=== PATIENT | male | born 1950 | race Caucasian/White ===

== ENCOUNTER 2018-02-14 08:19 | Outpatient (CLI) | payer MEDICARE, OTHER | END 2018-02-14 08:20 | disposition home or self-care (01) | LOC: BICULT 08:19 | PROVIDERS: ATTEND Otolaryngology Plastic Surgery within the Head & Neck | DX: E04.1 Nontoxic single thyroid nodule (principal) | CPT/HCPCS: 76536 ==

== ENCOUNTER 2018-08-21 08:30 | Outpatient (CLI) | payer MEDICARE, OTHER ==
--- NOTE | 2018-08-21 09:34 | RAD ---
CHEST TWO VIEWS: History: Osteoarthritis both knees. Pre-operative evaluation for knee surgery. Comparison: 10-01-16 FINDINGS: Heart size is within normal limits. The lungs are clear of acute process. No confluent pneumonia, ove rt, edema, or pleural effusion. IMPRESSION: No acute intrathoracic disease. Stable from prior study. POS: TPC
[2018-08-21 09:42] LABS: ALT (SGPT) 26 U/L (8-55); AST (SGOT) 24 U/L (5-34); Albumin 4.2 g/dL (3.4-4.8); Alkaline Phosphatase 63 U/L (40-150); Anion Gap 14 mmol/L (10-20); BUN (Urea Nitrogen) 17 mg/dL (8.4-25.7); Bilirubin, Total 0.6 mg/dL (0.2-1.2); Calc. Creatinine Clearance 0 mL/min (70-130); Calcium 9.7 mg/dL (7.8-10.44); Carbon Dioxide 26 mmol/L (23-31); Chloride 103 mmol/L (98-107); Estimated GFR-MDRD 74; Globulin 2.9 g/dL (2.4-3.5); Glucose 192 mg/dL (80-115); Potassium 4.1 mmol/L (3.5-5.1); Protein, Total 7.1 g/dL (5.8-8.1); Sodium 139 mmol/L (136-145)
[2018-08-21 09:55] LABS: #Basophils 0.1 thou/uL (0.0-0.2); #Eosinphils 0.3 thou/uL (0.0-0.7); #Lymphocytes 1.4 thou/uL (1.20-3.40); #Monocytes 0.6 thou/uL (0.11-0.59); #Neutrophils 3.5 thou/uL (1.40-6.50); %Basophils 1.2 % (0.0-1.0); %Eosinophils 5.4 % (0.0-10.0); %Lymphocytes 23.2 % (21.0-51.0); %Monocytes 10.8 % (0.0-10.0); %Neutrophils 59.4 % (42.0-75.0); Hemoglobin 15.9 g/dL (14.0-18.0); Mean Corpuscular HGB CONC 35.6 g/dL (32.0-36.0); Mean Corpuscular Hemoglobin 34.3 pg (27.0-31.0); Mean Corpuscular Volume 96.4 fL (78.0-98.0); Platelet Count 193 thou/uL (130-400); RBC Distribution Width 11.3 % (11.5-14.5); Red Blood Cell (RBC) Count 4.63 mill/uL (4.70-6.10); White Blood Cell (WBC) Count 5.8 thou/uL (4.8-10.8)
== END 2018-08-21 08:31 | disposition home or self-care (01) ==
LOC: SCSRAD 08:30
PROVIDERS: ATTEND Family Medicine
DX: Z01.811 Encounter for preprocedural respiratory examination (principal); M17.0 Bilateral primary osteoarthritis of knee
CPT/HCPCS: 36415; 71046; 80050; 87081

== ENCOUNTER 2018-09-18 09:15 | Inpatient (IN) | payer MEDICARE, OTHER ==
[2018-09-19] MEDS ORDERED: Bupivacaine HCl 0.5%/Epinephrine 1:200,000/PF 30 ml Vial ONE (06:33)
[2018-09-19] MEDS ORDERED: Dexamethasone 4 mg/ml Vial ONE (06:33)
[2018-09-19] MEDS ORDERED: Albumin 5% 500 ML ONE (06:33)
[2018-09-19] MEDS ORDERED: Heparin 10,000 UNITS/1 ML VIAL 30,000 UNITS in Sodium Chloride 0.9% 1,000 ML FS SCH (07:00)
[2018-09-19] MEDS ORDERED: Fentanyl 250 MCG/5 ML VIAL ONE (07:13)
[2018-09-19] MEDS ORDERED: Midazolam HCl 5 mg/5 ml Vial ONE (07:13)
[2018-09-19] MEDS ORDERED: Insulin Regular 300 UNITS/3 ML VIAL ONE (07:40)
[2018-09-19] MEDS ORDERED: PHENYLEPHRINE-NS 100 MCG/ML 10 ML SYRINGE ONE ×3 (10:01→14:02)
[2018-09-19] MEDS ORDERED: Phenylephrine HCL 10 MG/ML VIAL ONE (10:39)
[2018-09-19] MEDS ORDERED: Protamine Sulfate 50 MG/5 ML VIAL ONE (10:55)
[2018-09-19] MEDS ORDERED: Mag-Al 1200 mg/1200 mg/30 ML UDCUP PO PRN (12:03)
[2018-09-19] MEDS ORDERED: Bisacodyl 10 MG SUPP PR PRN (12:03)
[2018-09-19] MEDS ORDERED: Bisacodyl 5 MG TAB PO PRN (12:03)
[2018-09-19] MEDS ORDERED: Nitroglycerin 50 MG/250 ML BOT 250 ML IVPB PRN (12:03)
[2018-09-19] MEDS ORDERED: Post-Op Insulin Drip Protocol IVPB ONE (12:03)
[2018-09-19] MEDS ORDERED: Hetastarch 6% 500 ML 500 ML IVPB PRN (12:03)
[2018-09-19] MEDS ORDERED: Fentanyl 100 MCG/2 ML VIAL SLOW IVP PRN ×2 (12:03)
[2018-09-19] MEDS ORDERED: Ondansetron PF 4 MG/2 ML Vial IVP PRN (12:03)
[2018-09-19] MEDS ORDERED: Promethazine HCl 25 MG/ML VIAL IM PRN (12:03)
[2018-09-19] MEDS ORDERED: Acetaminophen 325 MG TAB PO PRN (12:03)
[2018-09-19] MEDS ORDERED: DOPamine 400 MG/D5W 250 ML 250 ML IVPB PRN (12:03)
[2018-09-19] MEDS ORDERED: Norepinephrine 8 MG/0.9% NS 250 ML IVPB PRN (12:03)
[2018-09-19] MEDS ORDERED: Guaifenesin DM 100-10/5 ML UDCUP PO PRN (12:03)
[2018-09-19] MEDS ORDERED: hydrALAZINE 20 MG/ML VIAL SLOW IVP PRN (12:03)
[2018-09-19] MEDS ORDERED: HYDROcodone/Acetaminophen 5/325 mg Tablet PO PRN (12:03)
[2018-09-19] MEDS ORDERED: Dextrose 5% in Water 1,000 ML IV PRN (12:14)
[2018-09-19] MEDS ORDERED: Dextrose 50% Abboject 50 ML SYRINGE SLOW IVP PRN (12:14)
[2018-09-19] MEDS ORDERED: HUMULIN R 100 UNITS in Sodium Chloride 0.9% 100 ML IVPB SCH (12:14)
[2018-09-19] MEDS ORDERED: Magnesium 2 GM/50 ML 2 GM in Premix Bag 1 BAG IVPB SCH (12:15)
[2018-09-19 12:18] LABS: #Eosinphils 0.1 thou/uL (0.0-0.7); #Lymphocytes 1.5 thou/uL (1.20-3.40); #Monocytes 1.2 thou/uL (0.11-0.59); #Neutrophils 12.3 thou/uL (1.40-6.50); %Eosinophils 0.8 % (0.0-10.0); %Lymphocytes 10.1 % (21.0-51.0); %Monocytes 8.1 % (0.0-10.0); %Neutrophils 80.9 % (42.0-75.0); Hemoglobin 13.1 g/dL (14.0-18.0); Mean Corpuscular HGB CONC 34.4 g/dL (32.0-36.0); Mean Corpuscular Hemoglobin 34.9 pg (27.0-31.0); Mean Platelet Volume 7.4 fL (7.4-10.4); Platelet Count 169 thou/uL (130-400); RBC Distribution Width 11.7 % (11.5-14.5); Red Blood Cell (RBC) Count 3.77 mill/uL (4.70-6.10); White Blood Cell (WBC) Count 15.1 thou/uL (4.8-10.8)
[2018-09-19] MEDS: Sodium Chloride 0.9% 1,000 ML IV SCH ×2 (12:20→21:17)
[2018-09-19 12:27] LABS: INR-International Normal Ratio 1.2; PTT 28.4 SEC (22.9-36.1); Prothrombin Time 15.4 SEC (12.0-14.7)
[2018-09-19 12:36] LABS: Actual Bicarbonate (HCO3a) 22.6 mEq/L (22-28); Base Excess (BEa) -3.7 mEq/L (-2.0 to +3.0); CO2 Tension 45.7 mmHg (35.0-45.0); Calcium, Ionized 1.14 mmol/L (1.12-1.30); Hemoglobin (Hb) 14.1 g/dL (14.0-18.0); O2 Tension (PaO2) 73.1 mmHg (> 70.0); Potassium - ABG Lab 3.46 mmol/L (3.70-5.30); pH, Arterial 7.31 (7.35-7.45)
--- NOTE | 2018-09-19 12:36 | RAD ---
FPortable frontal view chest CLINICAL HISTORY: Post open heart surgery FINDINGS: There is an endotracheal tube with tip at level of thoracic inlet. Right subclavian venous catheter terminates at right atrial region. Enlargement of cardiomediastinal silhouette. There is jonas ateral patchy perihilar opacification. Sternotomy wires are present. There are extrinsic artifact clark iting detail. Lung bases are not well-visualized by technique. IMPRESSION: Postoperative chest, as above.
[2018-09-19 12:39] LABS: Puncture Site ALINE
[2018-09-19 12:40] LABS: ALV-art Gradient 226.275 (0-20)
[2018-09-19] MEDS ORDERED: Morphine 2 MG/ML SYRINGE SLOW IVP PRN (12:56)
[2018-09-19 13:00] LABS: Anion Gap 11 mmol/L (10-20); BUN (Urea Nitrogen) 19 mg/dL (8.4-25.7); Calc. Creatinine Clearance 99 mL/min (70-130); Calcium 8.2 mg/dL (7.8-10.44); Carbon Dioxide 25 mmol/L (23-31); Chloride 109 mmol/L (98-107); Estimated GFR-MDRD 85; Glucose 120 mg/dL (80-115); Sodium 141 mmol/L (136-145)
[2018-09-19] MEDS ORDERED: Protamine Sulfate 250 MG/25 ML VIAL ONE (14:02)
[2018-09-19] MEDS ORDERED: Papaverine 60 MG/2 ML VIAL ONE (14:02)
[2018-09-19] MEDS ORDERED: Heparin 5,000 UNITS/ML VIAL ONE (14:02)
[2018-09-19] MEDS ORDERED: Vecuronium 10 MG VIAL ONE (14:02)
[2018-09-19] MEDS ORDERED: Cardioplegic Soln 1,000 ML BAG ONE (14:02)
[2018-09-19] MEDS ORDERED: Heparin 30,000 units/30 ml VIAL ONE (14:02)
[2018-09-19] MEDS ORDERED: Aminocaproic Acid 5 GM/20 ML VIAL ONE (14:02)
[2018-09-19] MEDS ORDERED: Sodium Bicarb 50 MEQ/50 ML VIAL ONE (14:02)
[2018-09-19] MEDS ORDERED: Mannitol 12.5 GM/50 ML ONE (14:02)
[2018-09-19] MEDS ORDERED: Rocuronium Bromide 10 MG/ML (10ML VIAL) ONE (14:02)
[2018-09-19] MEDS ORDERED: PROPOFOL 200 MG/20 ML VIAL ONE (14:02)
[2018-09-19] MEDS ORDERED: Thrombin 5000 UNITS/5 ML VIAL ONE (14:02)
[2018-09-19] MEDS ORDERED: DOPamine 400 MG/10 ML VIAL ONE (14:02)
[2018-09-19] MEDS ORDERED: Magnesium 5 GM/10 ML VIAL ONE (14:02)
[2018-09-19] MEDS ORDERED: Lidocaine 2% PF 100 mg/5 ml Syringe ONE (14:02)
[2018-09-19] MEDS ORDERED: Potassium Chloride 60 MEQ/30 ML VIAL ONE (14:02)
[2018-09-19] MEDS ORDERED: Calcium Chloride 1 GM/10 ML Abboject SYRINGE ONE (14:02)
[2018-09-19] MEDS: Potassium Chloride 20 MEQ/100 ML PREMIX BAG IVPB PRN (14:06)
[2018-09-19] MEDS: CEFAZOLIN 2 GM in Premix Bag 1 BAG IVPB SCH ×2 (15:06→22:58)
[2018-09-19 15:18] LABS: Actual Bicarbonate (HCO3a) 21.7 mEq/L (22-28); Analyzer IN Cardio OR; Base Excess (BEa) -2.4 mEq/L (-2.0 to +3.0); CO2 Tension 35.6 mmHg (35.0-45.0); Calcium, Ionized 1.09 mmol/L (1.12-1.30); Carboxyhemoglobin (COHb) 0.7 gm% (0.0-3.0); O2 Tension (PaO2) 70.9 mmHg (> 70.0); Potassium - ABG Lab 3.56 mmol/L (3.70-5.30)
[2018-09-19 15:19] LABS: Actual Bicarbonate (HCO3v) 24 mEq/L (22-28); Analyzer IN Cardio OR; Base Excess -1.9 mEq/L (-2.0 to +3.0); Calcium, Ionized 1.06 mmol/L (1.16-1.32); Chloride (ABG LAB) 106 mmol/L (98-106); Hemoglobin (Hb) 11.1 g/dL (12.6-17.4); Potassium - ABG Lab 4.22 mmol/L (3.70-5.30); Sodium 137.3 mmol/L (133-146); pH (venous) 7.34 (7.32-7.43)
[2018-09-19 15:19] LABS: Actual Bicarbonate (HCO3a) 23.2 mEq/L (22-28); Analyzer IN Cardio OR; Base Excess (BEa) -1.8 mEq/L (-2.0 to +3.0); CO2 Tension 40.5 mmHg (35.0-45.0); Calcium, Ionized 1.03 mmol/L (1.12-1.30); Carboxyhemoglobin (COHb) 0.3 gm% (0.0-3.0); Hemoglobin (Hb) 10.7 g/dL (14.0-18.0); O2 Tension (PaO2) 428.5 mmHg (> 70.0); Potassium - ABG Lab 3.87 mmol/L (3.70-5.30); pH, Arterial 7.38 (7.35-7.45)
[2018-09-19 15:19] LABS: Actual Bicarbonate (HCO3a) 22.4 mEq/L (22-28); Analyzer IN Cardio OR; Base Excess (BEa) -3.3 mEq/L (-2.0 to +3.0); CO2 Tension 42.6 mmHg (35.0-45.0); Carboxyhemoglobin (COHb) 0.5 gm% (0.0-3.0); Hemoglobin (Hb) 12.4 g/dL (14.0-18.0); Potassium - ABG Lab 3.86 mmol/L (3.70-5.30); pH, Arterial 7.34 (7.35-7.45)
[2018-09-19 15:20] LABS: Puncture Site ALINE
[2018-09-19 15:20] LABS: Analyzer IN Cardio OR; CO2 Tension 40.2 mmHg (35.0-45.0); Calcium, Ionized 1.04 mmol/L (1.12-1.30); Carboxyhemoglobin (COHb) 0.3 gm% (0.0-3.0); Hemoglobin (Hb) 11.2 g/dL (14.0-18.0); O2 Tension (PaO2) 384.2 mmHg (> 70.0); Potassium - ABG Lab 3.88 mmol/L (3.70-5.30); pH, Arterial 7.38 (7.35-7.45)
[2018-09-19 15:20] LABS: Actual Bicarbonate (HCO3a) 21.9 mEq/L (22-28); Analyzer IN Cardio OR; Base Excess (BEa) -3.6 mEq/L (-2.0 to +3.0); CO2 Tension 41.4 mmHg (35.0-45.0); Calcium, Ionized 1.08 mmol/L (1.12-1.30); Carboxyhemoglobin (COHb) 0.6 gm% (0.0-3.0); Hemoglobin (Hb) 12.2 g/dL (14.0-18.0); O2 Tension (PaO2) 89.3 mmHg (> 70.0); Potassium - ABG Lab 3.61 mmol/L (3.70-5.30); pH, Arterial 7.34 (7.35-7.45)
[2018-09-19 15:21] LABS: Puncture Site ALINE
[2018-09-19 15:21] LABS: Puncture Site ALINE
[2018-09-19 15:22] LABS: Puncture Site ALINE
[2018-09-19 15:22] LABS: Puncture Site ALINE
--- NOTE | 2018-09-19 15:53 | OP ---
DATE OF PROCEDURE: 09/19/2018 PREOPERATIVE DIAGNOSES: Coronary artery disease and left ventricular dysfunction. PROCEDURES PERFORMED: Coronary artery bypass graft x3, left internal mammary artery good quality to a 1.5 mm left anterior descending, saphenous vein to a 1.25 mm obtuse marginal 1, left radial artery to a 2 mm obtuse marginal 2, and the right coronary system had nothing on the inferior surface of the heart graft. SPEECH THERAPY DIRECTOR: Emre. TRANSFUSIONS: None. DESCRIPTION OF PROCEDURE: After adequate anesthesia had been obtained, the patient was prepped and draped. I harvested the left radial artery after ensuring good collateral flow while Dr. Andrea performed an open vein harvest in the left thigh. Sternum was then divided after closing the arm wound and left internal mammary artery was harvested. Heparin was given following aortic and right atrial cannulation with the aortic cannulation site up under the innominate vein. The patient's cardiopulmonary bypass was instituted. Vessels were inspected. The aorta crossclamped and after a liter of cold blood cardioplegia, distal anastomosis x3 were performed. Following this, the cross-clamp was removed, partial occluding clamp placed in the venous anastomosis performed on the aortic root into the booker of this. The radial anastomosis was placed and then a drain was used for marking. The patient was then weaned from cardiopulmonary bypass. Cannula was removed and protamine given systemically. Following placement of 2 mediastinal drain, the sternum was reapproximated with vancomycin paste on the edges using #7 wire and the subcutaneous tissue and skin were closed in layers. The patient tolerated the procedure. Job ID: [id number]
[2018-09-19 15:55] LABS: Actual Bicarbonate (HCO3a) 17.8 mEq/L (22-28); Base Excess (BEa) -6.6 mEq/L (-2.0 to +3.0); Calcium, Ionized 1.13 mmol/L (1.12-1.30); Carboxyhemoglobin (COHb) 1.1 gm% (0.0-3.0); Hemoglobin (Hb) 12.8 g/dL (14.0-18.0); O2 Tension (PaO2) 109.5 mmHg (> 70.0); Potassium - ABG Lab 3.59 mmol/L (3.70-5.30); pH, Arterial 7.36 (7.35-7.45)
[2018-09-19 16:06] LABS: Puncture Site ALINE
--- NOTE | 2018-09-19 17:34 | PDOC.CTH ---
Cardiology Progress Note - Subjective pt. seen and eval. by me. He is back after CABG. Extubated and alert. No complaints. - Objective Vital Signs Temp Pulse Resp BP Pulse Ox 09/19/18 16:00 94 L 09/19/18 15:58 95 09/19/18 15:54 97.9 F 09/19/18 14:13 73 103/47 L 09/19/18 14:00 14 09/19/18 13:00 97.6 F 09/19/18 12:15 12 94 L 09/19/18 12:10 79 110/29 L Weight 214 lb 4.629 oz 09/18/18 09/19/18 09/20/18 06:59 06:59 06:59 Intake Total 281.9 Output Total 430 Balance -148.1 - Physical Examination General/Neuro: alert & oriented x3 Neck: no JVD present Lungs: CTA, other: (chest tubes in.) Heart: RRR Abdomen: NT/ND, soft - Labs Result Diagrams: 09/19/18 12:06 09/19/18 12:06 - Assessment/Plan 1. CAD. s/p CABG today OZUNA-> LAD. SVG-> OM1, Radial-> OM2 2. DM: stable. On Insulin. 3. HTN: stable. 4. CKdz. 5. Dyslipidemia 6. PVdz., carotid disease. 7. Chronic knee pain: needs surgery in the future. Medes reviewed. I agree with the present management.
[2018-09-19 17:37] LABS: Hemoglobin 12.9 g/dL (14.0-18.0)
[2018-09-19 18:08] LABS: Potassium 4.3 mmol/L (3.5-5.1)
[2018-09-19] MEDS: Simvastatin 40 MG TAB PO SCH (21:10)
[2018-09-19] MEDS: Famotidine/PF 20 mg/2ml Vial SLOW IVP SCH (21:10)
--- NOTE | 2018-09-19 21:27 | EKG ---
Test Reason : POST CABG Blood Pressure : / mmHG Vent. Rate : 078 BPM Atrial Rate : 078 BPM P-R Int : 000 ms QRS Dur : 106 ms QT Int : 494 ms P-R-T Axes : 047 -02 -32 degrees QTc Int : 563 ms Sinus rhythm with 1st degree A-V block Inferior infarct , age undetermined Prolonged QT Abnormal ECG When compared with ECG of 29-DEC-1998 08:58, ND interval has decreased Inferior infarct is now Present T wave inversion more evident in Inferior leads Nonspecific T wave abnormality now evident in Lateral leads QT has lengthened Confirmed by PEDRITO RASCON, DR. Sotelo ([id number]) on 09/19/2018 9:26:48 PM Referred By: JASS Confirmed By:DR. Ashleigh MAJOR MD
[2018-09-20] MEDS: HYDROcodone/Acetaminophen 5/325 mg Tablet PO PRN ×4 (02:13→18:12)
[2018-09-20 04:23] LABS: #Lymphocytes 0.8 thou/uL (1.20-3.40); #Neutrophils 7.2 thou/uL (1.40-6.50); %Basophils 0.1 % (0.0-1.0); %Eosinophils 0.3 % (0.0-10.0); %Lymphocytes 9.2 % (21.0-51.0); %Monocytes 10.6 % (0.0-10.0); %Neutrophils 79.8 % (42.0-75.0); Hemoglobin 12.3 g/dL (14.0-18.0); Mean Corpuscular HGB CONC 34.2 g/dL (32.0-36.0); Mean Platelet Volume 7.3 fL (7.4-10.4); Platelet Count 138 thou/uL (130-400); RBC Distribution Width 11.7 % (11.5-14.5); White Blood Cell (WBC) Count 9.1 thou/uL (4.8-10.8)
[2018-09-20 04:41] LABS: Anion Gap 9 mmol/L (10-20); BUN (Urea Nitrogen) 17 mg/dL (8.4-25.7); Calc. Creatinine Clearance 106 mL/min (70-130); Calcium 8.4 mg/dL (7.8-10.44); Carbon Dioxide 26 mmol/L (23-31); Chloride 110 mmol/L (98-107); Estimated GFR-MDRD 85; Glucose 136 mg/dL (80-115); Potassium 3.8 mmol/L (3.5-5.1); Sodium 141 mmol/L (136-145)
[2018-09-20] MEDS: Potassium Chloride 20 MEQ/100 ML PREMIX BAG IVPB PRN (06:33)
[2018-09-20] MEDS: CEFAZOLIN 2 GM in Premix Bag 1 BAG IVPB SCH (06:37)
[2018-09-20] MEDS: Famotidine/PF 20 mg/2ml Vial SLOW IVP SCH ×2 (07:57→21:55)
[2018-09-20] MEDS: Aspirin 325 MG TAB PO SCH (07:57)
--- NOTE | 2018-09-20 09:37 | RAD ---
CHEST 1 VIEW: INDICATION: Status post open heart surgery. COMPARISON: Prior exam dated 09/19/2018. IMPRESSION: Since the comparison exam, the patient has been intervally extubated. The mediastinal drain and righ t subclavian central venous catheter persist. Cardiomegaly is similar-appearing. Mild pulmonary vas cular congestion persists. No pneumothorax is evident. IMPRESSION: 1. Interval extubation. 2. Persistent cardiomegaly and pulmonary vascular congestion. POS: TPC
--- NOTE | 2018-09-20 10:09 | PDOC.CTH ---
Cardiology Progress Note - Subjective Pt. seen and eval. by me. He is sitting up in the chair. No complaints.Looks good pod#1. - Objective Vital Signs Temp Pulse Ox 09/20/18 07:00 98.0 F 09/20/18 04:00 98.5 F 09/20/18 02:27 96 09/20/18 00:00 98.4 F Weight 214 lb 4.629 oz 09/19/18 09/20/18 09/21/18 06:59 06:59 06:59 Intake Total 2664.5 240 Output Total 1340 240 Balance 1324.5 0 - Physical Examination General/Neuro: alert & oriented x3 Neck: no JVD present Lungs: unlabored respirations, other: (bilateral rales,decreased BS bases.Chest tubes still in.) Heart: RRR Abdomen: NT/ND, soft - Telemetry Telemetry Rhythm: NSR - Labs Result Diagrams: 09/20/18 04:00 09/20/18 04:00 - Assessment/Plan 1. CAD. s/p CABG today OZUNA-> LAD. SVG-> OM1, Radial-> OM2 2. DM: stable. On Insulin. 3. HTN: stable. 4. CKdz. 5. Dyslipidemia 6. PVdz., carotid disease. 7. Chronic knee pain: needs surgery in the future. Medes reviewed. I agree with the present management.
[2018-09-20] MEDS ORDERED: Insulin Glargine 10 UNITS in Pre-Filled Syringe 1 EACH SC SCH (11:00)
[2018-09-20] MEDS: Pioglitazone HCl 15 MG TAB PO SCH (12:19)
[2018-09-20] MEDS: glyBURIDE 5 MG TAB PO SCH (12:19)
[2018-09-20] MEDS: Sodium Chloride 0.9% 1,000 ML IV SCH (14:20)
[2018-09-20] MEDS: Insulin Regular 300 UNITS/3 ML VIAL SC PRN ×2 (16:59→22:06)
[2018-09-20] MEDS: Simvastatin 40 MG TAB PO SCH (21:55)
[2018-09-21] MEDS: Sodium Chloride 0.9% 1,000 ML IV SCH
[2018-09-21] MEDS: Insulin Regular 300 UNITS/3 ML VIAL SC PRN ×2 (04:03→12:00)
[2018-09-21 04:33] LABS: #Eosinphils 0.1 thou/uL (0.0-0.7); #Lymphocytes 0.9 thou/uL (1.20-3.40); #Monocytes 0.8 thou/uL (0.11-0.59); #Neutrophils 6.5 thou/uL (1.40-6.50); %Basophils 0.3 % (0.0-1.0); %Eosinophils 1.8 % (0.0-10.0); %Lymphocytes 10.4 % (21.0-51.0); %Monocytes 9.7 % (0.0-10.0); %Neutrophils 77.8 % (42.0-75.0); Hemoglobin 12.4 g/dL (14.0-18.0); Mean Corpuscular HGB CONC 34.3 g/dL (32.0-36.0); Mean Corpuscular Hemoglobin 35.5 pg (27.0-31.0); Mean Platelet Volume 7.7 fL (7.4-10.4); Platelet Count 125 thou/uL (130-400); RBC Distribution Width 11.9 % (11.5-14.5); White Blood Cell (WBC) Count 8.3 thou/uL (4.8-10.8)
[2018-09-21 04:50] LABS: Anion Gap 11 mmol/L (10-20); BUN (Urea Nitrogen) 14 mg/dL (8.4-25.7); Calc. Creatinine Clearance 115 mL/min (70-130); Calcium 8.3 mg/dL (7.8-10.44); Carbon Dioxide 26 mmol/L (23-31); Chloride 104 mmol/L (98-107); Estimated GFR-MDRD Greater than 90; Glucose 163 mg/dL (80-115); Potassium 3.8 mmol/L (3.5-5.1); Sodium 137 mmol/L (136-145)
[2018-09-21 06:18] VITALS: BMI 30.9
[2018-09-21] MEDS: Potassium Chloride 20 MEQ/100 ML PREMIX BAG IVPB PRN (06:27)
[2018-09-21] MEDS ORDERED: metFORMIN 500 MG TAB PO SCH (08:00)
[2018-09-21] MEDS: glyBURIDE 5 MG TAB PO SCH (08:04)
[2018-09-21] MEDS: Pioglitazone HCl 15 MG TAB PO SCH (08:04)
[2018-09-21] MEDS: Aspirin 325 MG TAB PO SCH (08:05)
[2018-09-21] MEDS: Famotidine/PF 20 mg/2ml Vial SLOW IVP SCH (08:05)
[2018-09-21] MEDS: Metoprolol Tartrate 25 MG TAB PO SCH ×2 (08:05→21:39)
[2018-09-21] MEDS: metFORMIN 500 MG TAB PO SCH ×2 (08:05→17:12)
--- NOTE | 2018-09-21 08:07 | RAD ---
FRadiograph chest one view: 09/21/2018 4:37 AM HISTORY: 68-year-old male status post open heart surgery COMPARISON: 09/20/2018 4:41 AM FINDINGS: Right subclavian central line, sternotomy wires, unchanged. No pulmonary edema or consolidation. No p neumothorax. No interval change. IMPRESSION: No interval change
[2018-09-21] MEDS: HYDROcodone/Acetaminophen 5/325 mg Tablet PO PRN ×3 (08:33→19:41)
[2018-09-21] MEDS ORDERED: Bisacodyl 10 MG SUPP PR PRN (08:38)
[2018-09-21] MEDS ORDERED: Nitroglycerin 0.4 MG TAB (25 Tab Bottle) SL PRN (08:38)
[2018-09-21] MEDS ORDERED: Acetaminophen 325 MG TAB PO PRN (08:38)
[2018-09-21] MEDS ORDERED: Mag-Al 1200 mg/1200 mg/30 ML UDCUP PO PRN (08:38)
[2018-09-21] MEDS ORDERED: Mineral Oil ENEMA PR PRN (08:38)
[2018-09-21] MEDS ORDERED: Fentanyl 100 MCG/2 ML VIAL SLOW IVP PRN (08:38)
[2018-09-21] MEDS ORDERED: Bisacodyl 5 MG TAB PO PRN (08:38)
[2018-09-21] MEDS ORDERED: Guaifenesin DM 100-10/5 ML UDCUP PO PRN (08:38)
[2018-09-21] MEDS ORDERED: Ondansetron PF 4 MG/2 ML Vial IVP PRN (08:38)
--- NOTE | 2018-09-21 08:51 | PDOC.CTH ---
Cardiology Progress Note - Subjective Doing well. - Objective Vital Signs Temp Pulse Ox 09/21/18 08:02 94 L 09/21/18 08:00 95 09/21/18 04:00 99.2 F 09/21/18 00:00 98.7 F Weight 215 lb 2.738 oz 09/20/18 09/21/18 09/22/18 06:59 06:59 06:59 Intake Total 2664.5 776.5 Output Total 1340 1665 175 Balance 1324.5 -888.5 -175 - Physical Examination General/Neuro: alert & oriented x3, NAD Neck: carotid US brisk, no JVD present Lungs: CTA, unlabored respirations Heart: PMI normal, RRR Abdomen: NT/ND, soft Extremities: + femoral B - Labs Result Diagrams: 09/21/18 03:50 09/21/18 03:50 - Assessment/Plan 1. CAD. s/p CABG today OZUNA-> LAD. SVG-> OM1, Radial-> OM2 2. DM: stable. On Insulin. 3. HTN: stable. 4. CKdz. 5. Dyslipidemia 6. PVdz., carotid disease. 7. Chronic knee pain: needs surgery in the future. Doing well BB, statin and ASA IS and PT Transfer to tele
[2018-09-21] MEDS: Aspirin 325 mg Enteric Coated Tablet PO SCH (09:50)
[2018-09-21] MEDS: Enoxaparin Sodium 30 MG/0.3 ML SYRINGE SC SCH (09:50)
[2018-09-21] MEDS: Polyethylene Glycol 3350 17 GM Packet PO SCH (09:51)
[2018-09-21] MEDS: Famotidine 20 MG TAB PO SCH ×2 (09:51→21:39)
[2018-09-21] MEDS: Simvastatin 40 MG TAB PO SCH (21:39)
[2018-09-22 06:35] LABS: Anion Gap 11 mmol/L (10-20); BUN (Urea Nitrogen) 12 mg/dL (8.4-25.7); Calc. Creatinine Clearance 118 mL/min (70-130); Calcium 8.7 mg/dL (7.8-10.44); Carbon Dioxide 29 mmol/L (23-31); Chloride 101 mmol/L (98-107); Estimated GFR-MDRD Greater than 90; Glucose 157 mg/dL (80-115); Potassium 3.6 mmol/L (3.5-5.1); Sodium 137 mmol/L (136-145)
[2018-09-22] MEDS: Enoxaparin Sodium 30 MG/0.3 ML SYRINGE SC SCH (08:52)
[2018-09-22] MEDS: Metoprolol Tartrate 25 MG TAB PO SCH (08:53)
[2018-09-22] MEDS: Famotidine 20 MG TAB PO SCH ×2 (08:53→21:07)
[2018-09-22] MEDS: Aspirin 325 mg Enteric Coated Tablet PO SCH (08:53)
[2018-09-22] MEDS: Pioglitazone HCl 15 MG TAB PO SCH (08:58)
[2018-09-22] MEDS: glyBURIDE 5 MG TAB PO SCH (08:58)
[2018-09-22] MEDS: metFORMIN 500 MG TAB PO SCH ×2 (08:58→17:34)
[2018-09-22] MEDS: Polyethylene Glycol 3350 17 GM Packet PO SCH (09:01)
[2018-09-22] MEDS ORDERED: Metoprolol Tartrate 25 MG TAB PO SCH ×2 (09:19→09:45)
[2018-09-22] MEDS: Metoprolol Tartrate 50 MG TAB PO SCH ×2 (10:31→21:07)
--- NOTE | 2018-09-22 10:45 | PDOC.CTH ---
Cardiology Progress Note - Subjective No complaints today. Mild pain. Up walking in treviño 250 steps this morning. Vergara still in place. - Objective Vital Signs Temp Pulse Resp BP Pulse Ox 09/22/18 08:00 98.7 F 107 H 20 177/83 H 93 L 09/22/18 04:45 98.1 F 101 H 18 153/75 H 97 Weight 216 lb 5 oz 09/21/18 09/22/18 09/23/18 06:59 06:59 06:59 Intake Total 776.5 240 Output Total 1665 710 Balance -888.5 -470 - Physical Examination General/Neuro: alert & oriented x3 Neck: no JVD present Lungs: CTA Heart: RRR Abdomen: NT/ND Extremities: + edema B - Telemetry Telemetry Rhythm: SR/ST - Labs Result Diagrams: 09/21/18 03:50 09/22/18 05:22 - Assessment/Plan 1. CAD. s/p CABG OZUNA-> LAD. SVG-> OM1, Radial-> OM2 2. DM-II 3. HTN 4. CKD 5. Dyslipidemia Continue to increase ambulation as tolerated. Pull vergara in next 24-48 hours. Patient with history of incontinence and doesn't want it pulled until he's more independent. Monitor rhythm. Increase bblocker as tolerated.
[2018-09-22] MEDS: Losartan 25 MG TAB PO SCH (12:31)
[2018-09-22] MEDS: HYDROcodone/Acetaminophen 5/325 mg Tablet PO PRN (15:06)
[2018-09-22] MEDS ORDERED: Tamsulosin HCl 0.4 MG CAP PO SCH (21:00)
[2018-09-22] MEDS: Simvastatin 40 MG TAB PO SCH (21:07)
[2018-09-22] MEDS: Naproxen 500 MG TAB PO SCH (21:07)
[2018-09-23] MEDS ORDERED: Tamsulosin HCl 0.4 MG CAP PO SCH (09:00)
[2018-09-23] MEDS: Naproxen 500 MG TAB PO SCH ×2 (09:12→20:52)
[2018-09-23] MEDS: Potassium Chloride 10 MEQ TAB PO SCH (09:13)
[2018-09-23] MEDS: Furosemide 40 MG TAB PO SCH (09:13)
[2018-09-23] MEDS: glyBURIDE 5 MG TAB PO SCH (09:13)
[2018-09-23] MEDS: Pioglitazone HCl 15 MG TAB PO SCH (09:13)
[2018-09-23] MEDS: metFORMIN 500 MG TAB PO SCH ×2 (09:14→17:51)
[2018-09-23] MEDS: Aspirin 325 mg Enteric Coated Tablet PO SCH (09:14)
[2018-09-23] MEDS: Famotidine 20 MG TAB PO SCH ×2 (09:14→20:52)
[2018-09-23] MEDS: Metoprolol Tartrate 50 MG TAB PO SCH ×2 (09:15→20:52)
[2018-09-23] MEDS: Enoxaparin Sodium 30 MG/0.3 ML SYRINGE SC SCH (09:23)
[2018-09-23] MEDS: Polyethylene Glycol 3350 17 GM Packet PO SCH (09:23)
--- NOTE | 2018-09-23 12:04 | PDOC.CTH ---
Cardiology Progress Note - Subjective The pt seen and examined. No overnight events. No cardiac complaints. - Objective Vital Signs Temp Pulse Resp BP Pulse Ox 09/23/18 07:31 95 18 128/60 94 L 09/23/18 04:41 97.7 F 78 16 118/65 93 L Weight 215 lb 7 oz 09/22/18 09/23/18 09/24/18 06:59 06:59 06:59 Intake Total 240 1560 Output Total 710 2425 Balance -470 -865 - Physical Examination General/Neuro: alert & oriented x3 Neck: no JVD present Lungs: CTA Heart: RRR Abdomen: soft Extremities: other: (swelling to LUE and BLE; TEDs on) - Telemetry Telemetry Rhythm: SR - Labs Result Diagrams: 09/21/18 03:50 09/22/18 05:22 - Assessment/Plan 1. 3V CAD with s/p CABG on 09/19/2018 with OZUNA-> LAD, SVG-> OM1, Radial-> OM2; On BBlocker, ASA, Statin 2. HTN: stable. 3. DM: stable. On Insulin. 4. CKD: Stable 5. Dyslipidemia: on Statin 6. PVD with carotid disease. 7. Chronic knee pain: needs surgery in the future. Medes reviewed. Pt. seen and eval. by me. I agree with the A/P by the PAN RECLAIM PROCESSOR. No complaints. Chest clear. RRR. No edema. Doing well s/p cabg. Review of Systems - Review of Systems Constitutional: reports: no symptoms reported EENTM: reports: no symptoms reported Respiratory: reports: no symptoms reported ABD/GI: reports: no symptoms reported : reports: no symptoms reported Musculoskeletal: reports: no symptoms reported Skin: reports: no symptoms reported Neurological: reports: no symptoms reported
[2018-09-23] MEDS: Losartan 25 MG TAB PO SCH (12:53)
[2018-09-23] MEDS: Simvastatin 40 MG TAB PO SCH (20:52)
[2018-09-24] MEDS: Aspirin 325 mg Enteric Coated Tablet PO SCH (08:47)
[2018-09-24] MEDS: Enoxaparin Sodium 30 MG/0.3 ML SYRINGE SC SCH (08:47)
[2018-09-24] MEDS: Furosemide 40 MG TAB PO SCH (08:47)
[2018-09-24] MEDS: Famotidine 20 MG TAB PO SCH (08:48)
[2018-09-24] MEDS: metFORMIN 500 MG TAB PO SCH (08:48)
[2018-09-24] MEDS: Metoprolol Tartrate 50 MG TAB PO SCH (08:48)
[2018-09-24] MEDS: Pioglitazone HCl 15 MG TAB PO SCH (08:48)
[2018-09-24] MEDS: Potassium Chloride 10 MEQ TAB PO SCH (08:48)
[2018-09-24] MEDS: Naproxen 500 MG TAB PO SCH (08:49)
[2018-09-24] MEDS: Polyethylene Glycol 3350 17 GM Packet PO SCH (08:49)
[2018-09-24] MEDS: glyBURIDE 5 MG TAB PO SCH (08:49)
--- NOTE | 2018-09-24 09:21 | DIS ---
DATE OF ADMISSION: 09/19/2018 DATE OF DISCHARGE: 09/24/2018 This is a 68-year-old gentleman in preparation for knee replacement, found to have severe coronary artery disease by Dr. Hanson. He underwent coronary artery bypass grafting to the LAD, obtuse marginal 1, obtuse marginal 2. The right coronary system had no bypassable targets and the OM1 was rather small. His postoperative course was uneventful with no arrhythmias. He progressed nicely. His sugars were mildly elevated. He will be discharged on his home medications, except that his losartan will be decreased to 50 mg daily from 100 and he will not resume his amlodipine at this time. He will also receive a prescription for Pyatt. Discharge and followup instructions were given. Discharge weight is listed at 217 pounds. Job ID: [id number]
[2018-09-24] MEDS: Losartan 25 MG TAB PO SCH (12:35)
--- NOTE | 2018-09-24 13:47 | PDOC.CTH ---
Cardiology Progress Note - Subjective The pt seen and examined. No overnight events. No cardiac complaints. - Objective Vital Signs Temp Pulse Resp BP Pulse Ox 09/24/18 12:23 97.9 F 80 18 115/56 L 95 09/24/18 07:25 97.8 F 82 18 134/74 96 09/24/18 04:00 98.4 F 68 20 121/60 94 L Weight 217 lb 1.6 oz 09/23/18 09/24/18 09/25/18 06:59 06:59 06:59 Intake Total 1560 1200 Output Total 2425 1030 Balance -865 170 - Physical Examination General/Neuro: alert & oriented x3 Neck: no JVD present Lungs: CTA Heart: RRR Abdomen: soft Extremities: other: (No edema) - Telemetry Telemetry Rhythm: SR 90s - Labs Result Diagrams: 09/21/18 03:50 09/22/18 05:22 - Assessment/Plan 1. 3V CAD with s/p CABG on 09/19/2018 with OZUNA-> LAD, SVG-> OM1, Radial-> OM2; On BBlocker, ASA, Statin 2. HTN: stable. 3. DM: stable. On Insulin. 4. CKD: Stable 5. Dyslipidemia: on Statin 6. PVD with carotid disease. 7. Chronic knee pain: needs surgery in the future. Medes reviewed. * From cardiac standpoint, the pt is stable to d/c home. The pt will f/u with Dr Hanson' office within 2-4 wks. Pt. seen and eval. by me. I agree with the A/P by the BOOK CUTTER No complaints. Chest clear. RRR. gjm Review of Systems - Review of Systems Constitutional: reports: no symptoms reported EENTM: reports: no symptoms reported Respiratory: reports: no symptoms reported Cardiac (ROS): reports: no symptoms reported ABD/GI: reports: no symptoms reported : reports: no symptoms reported Musculoskeletal: reports: no symptoms reported
[2018-09-24 15:51] VITALS: BP 126/66; TEMP 98
--- NOTE | 2018-09-25 12:24 | PQF ---
ESTHER LÓPEZ JAMES M MD [id number] CLINICAL DOCUMENTATION CLARIFICATION FORM: POST DISCHARGE Addendum to original discharge summary date: ____ Late entry note date: __ DATE: 09/25/18 ATTN: Dr. Townsend, Please exercise your independent, professional judgment in responding to the clarification form. Clinical indicators are provided on the bottom of this form for your review Please check appropriate box(s): [y ] CKD without ARF/ADDISON please specify Stage of CKD 3 [ ] Other diagnosis [ ] Unable to determine In addition, please specify: Present on Admission (POA): [ ] Yes [ ] No [ ] Unable to determine National Kidney Foundation Guidelines for CKD Staging Stage I Kidney damage with normal or increased GFR GFR > 90 Stage II Kidney damage with mildly decreased GFR GFR 60-89 Stage III Kidney damage with moderately decreased GFR GFR 30-59 Stage IV Kidney damage with severely decreased GFR GFR 16-29 Stage V Kidney failure GFR<15 ESRD End Stage Renal Disease On dialysis Acute Renal Failure/Acute Kidney Failure defined as: Increases in SCr by (>) 0.3 mg/dl within 48 hours OR- Increases in SCr by (>) 1.5 times baseline, known or presumed to have occurred within the prior 7 days OR- Urine volume < 0.5 ml/kg/hour for 6 hours (KDIGO supplement 2012 for RIFLE/KURT criteria) For continuity of documentation, please document condition throughout progress notes and discharge summary. Thank You. CLINICAL INDICATORS - SIGNS / SYMPTOMS / LABS CKD---4/ Progress note CKD stable--09/24 Progress note eGFR--85---/ Labs RISK FACTORS Hypertension--4/4 H&P Diabetes Mellitus--4/4 H&P TREATMENTS: Amlodipine Besylate 5 mg once a day--4/4 H&P-current meds Metoprolol Succinate 100 mg once a day--4/4 H&P--current meds Losartan Potassium 100 mg once a day--4/4 H&P Thank you, iLly Nguyen, CCS 12:22 PM (This form is maintained as a part of the permanent medical record) 2015 [employer] All Rights Reserved [email or web address] [phone] [facility]
== END 2018-09-24 16:16 | disposition home or self-care (01) | DRG 236 ==
LOC: EDSTATUS 09:15 → SURG A 09-19 05:53 → CCU 09-19 09:57 → 2NO 09-21 17:44
PROVIDERS: ADMIT Thoracic Surgery (Cardiothoracic Vascular Surgery); ATTEND Thoracic Surgery (Cardiothoracic Vascular Surgery)
PROC: 0212099 Bypass Coronary Artery, Three Arteries from Left Internal Mammary with Autologous Venous Tissue, Open Approach (ICD-10-PCS; principal; 2018-09-19)
PROC: 5A1221Z Performance of Cardiac Output, Continuous (ICD-10-PCS; 2018-09-19)
PROC: 06BQ0ZZ Excision of Left Saphenous Vein, Open Approach (ICD-10-PCS; 2018-09-19)
PROC: 03BC0ZZ Excision of Left Radial Artery, Open Approach (ICD-10-PCS; 2018-09-19)
DX: I25.10 Atherosclerotic heart disease of native coronary artery without angina pectoris (principal); E78.2 Mixed hyperlipidemia; I65.29 Occlusion and stenosis of unspecified carotid artery; E11.22 Type 2 diabetes mellitus with diabetic chronic kidney disease; I12.9 Hypertensive chronic kidney disease with stage 1 through stage 4 chronic kidney disease, or unspecified chronic kidney disease; I73.9 Peripheral vascular disease, unspecified; M25.561 Pain in right knee; N18.3 Chronic kidney disease, stage 3 (moderate); Z87.891 Personal history of nicotine dependence; Z79.84 Long term (current) use of oral hypoglycemic drugs; Z79.82 Long term (current) use of aspirin; Z79.899 Other long term (current) drug therapy; Z85.46 Personal history of malignant neoplasm of prostate; Z98.890 Other specified postprocedural states; Z82.49 Family history of ischemic heart disease and other diseases of the circulatory system; Z88.8 Allergy status to other drugs, medicaments and biological substances
CPT/HCPCS: 36415; 36416; 36430; 71045; 80048; 82805; 82947; 85025; 85027; 85610; 85730; 86850; 86900; 86901; 93005; 93010; 93798; 94002; 94150; J0670; J1100; J1265; J1642; J1644; J1650; J1815; J1825; J2001; J2150; J2250; J2370; J2440; J2704; J2720; J3010; J3370; J3475; J3480; J7050; P9045; Q4186; S0017; S0028